=== PATIENT | male | born 2000 | race Two or more races ===

== ENCOUNTER 2024-05-31 18:23 | Inpatient (IN) | payer OTHER ==
[2024-05-31 18:49] VITALS: BMI 36.6
[2024-05-31] MEDS ORDERED: MAG HYDROX/AL HYDROX/SIMETH 30 ML UNIT-DOSE CUP PO PRN (19:30)
[2024-05-31] MEDS ORDERED: BENZONATATE 200 MG CAPSULE PO PRN (19:30)
[2024-05-31] MEDS ORDERED: POLYETHYLENE GLYCOL (HEALTHYLAX) 3350 17 GM PACKET PO PRN (19:30)
[2024-05-31] MEDS ORDERED: NICOTINE POLACRILEX 2 MG LOZENGE BC PRN (19:30)
[2024-05-31] MEDS ORDERED: DICYCLOMINE HCL 10 MG CAPSULE PO PRN (19:30)
[2024-05-31] MEDS ORDERED: BENZOCAINE/MENTHOL (CHLORASEPTIC ) LOZENGE MM PRN (19:30)
[2024-05-31] MEDS ORDERED: ACETAMINOPHEN 325 MG TABLET (FP) PO PRN (19:30)
[2024-05-31] MEDS ORDERED: IBUPROFEN 400 MG TABLET (FP) PO PRN (19:30)
[2024-05-31] MEDS ORDERED: MAGNESIUM HYDROX 2400MG/30ML ORAL SUSPENSION 30 ML CUP PO PRN (19:30)
[2024-05-31] MEDS ORDERED: guaiFENesin 600 MG TABLET.ER (FP) PO PRN (19:30)
[2024-05-31] MEDS ORDERED: BISMUTH SUBSALICYLATE 524 MG/30 ML PO PRN (19:30)
[2024-05-31] MEDS ORDERED: NICOTINE POLACRILEX 2 MG GUM BUC PRN (19:30)
[2024-05-31] MEDS ORDERED: LOPERAMIDE HCL 2 MG CAPSULE PO PRN (19:30)
[2024-05-31] MEDS ORDERED: ONDANSETRON *ODT* 4 MG TABLET SL PRN (19:30)
[2024-05-31] MEDS: METOPROLOL TARTRATE 25 MG TABLET (FP) PO ONE (20:46)
[2024-05-31] MEDS: THIAMINE 100 MG TABLET PO SCH (22:08)
[2024-05-31] MEDS: MELATONIN 5 MG TABLETS PO SCH (22:08)
[2024-05-31] MEDS: IBUPROFEN 600 MG TABLET (FP) PO PRN (22:53)
[2024-06-01] MEDS: PRENATAL VITAMINS W/ FOLIC ACID TABLET (FP) PO SCH (09:44)
[2024-06-01] MEDS: hydrOXYzine PAMOATE 25 MG CAPSULE (FP) PO PRN (09:47)
[2024-06-01 13:41] LABS: HEMATOCRIT 43.2 % (35.4-49); HEMOGLOBIN 15.1 GM/dL (11.7-16.9); MCH 30.2 pg (25.7-33.7); MEAN CELL VOLUME 86.5 fl (80-96); MEAN PLT VOLUME 7.1 fl (7.5-11.1); PLATELET COUNT 373 10^3/uL (134-434); RDW 13.9 % (11.9-15.9); WHITE BLOOD COUNT 5.4 K/mm3 (4.0-10.0)
[2024-06-01 14:01] LABS: POTASSIUM 4.2 mmol/L (3.5-5.1)
[2024-06-01 14:19] LABS: CALCIUM 9.8 mg/dL (8.5-10.1)
[2024-06-01 14:20] LABS: ALBUMIN 4.2 g/dl (3.4-5.0)
[2024-06-01 14:22] LABS: CREATININE 0.9 mg/dL (0.55-1.3)
[2024-06-01 14:26] LABS: BILIRUBIN,TOTAL 0.4 mg/dL (0.2-1)
[2024-06-01 14:27] LABS: TOT PROT 7.8 g/dl (6.4-8.2)
[2024-06-01] MEDS: METHOCARBAMOL 500 MG TABLET PO PRN (22:17)
[2024-06-03] MEDS: cloNIDine HCL 0.1 MG TABLET PO ONE (00:40)
[2024-06-04 08:48] VITALS: BP 138/95; PULSE 85; RESP 18; TEMP 97.6
== END 2024-06-04 10:12 | disposition home or self-care (01) | DRG 775 ==
LOC: YASAS 18:23 → Y6N 20:04
PROVIDERS: ADMIT Allergy & Immunology; ATTEND Surgery
PROC: HZ2ZZZZ Detoxification Services for Substance Abuse Treatment (ICD-10-PCS; principal; 2024-05-31)
DX: F10.230 Alcohol dependence with withdrawal, uncomplicated (principal); F12.20 Cannabis dependence, uncomplicated; F17.210 Nicotine dependence, cigarettes, uncomplicated; F20.9 Schizophrenia, unspecified; F10.282 Alcohol dependence with alcohol-induced sleep disorder
CPT/HCPCS: 36415; 80053; 80305; 85027; 86780; 93005; 93010